=== PATIENT | male | born 1955 | race Caucasian/White ===

== ENCOUNTER 2017-08-26 13:13 | Emergency (ER) | payer MEDICAID ==
[~2017-08-26] VITALS: Ht 185.4 cm; Wt 83.9 kg
[~2017-08-26 13:13] MED LIST: AMOX500T3 PO; HYDR-4683 PO; IBUP800T24 PO
[2017-08-26 14:31] VITALS: BP 104/74
== END 2017-08-26 15:04 | disposition home or self-care (01) ==
LOC: ER 13:22
DX: L03.113 Cellulitis of right upper limb (principal); F12.10 Cannabis abuse, uncomplicated; Z87.891 Personal history of nicotine dependence; Z88.6 Allergy status to analgesic agent; Z88.8 Allergy status to other drugs, medicaments and biological substances

== ENCOUNTER 2019-09-19 06:05 | Emergency (ER) | payer OTHER, MEDICAID ==
[~2019-09-19] VITALS: Ht 185.4 cm; Wt 80.7 kg
[~2019-09-19 06:05] MED LIST changes: -HYDR-4683 PO; +HYDR-4833 PO
[2019-09-19 06:27] VITALS: BP 111/78
[2019-09-19] MEDS ORDERED: BACITRACIN TOP OINT 1 UD PKG TOP ONE ×2 (07:00→07:30)
[2019-09-19] MEDS ORDERED: LIDOCAINE 1% HCL (LOCAL ANESTH.) INJ 20ML MDV IJ ONE (07:00)
== END 2019-09-19 07:46 | disposition home or self-care (01) ==
LOC: ER 06:05
DX: S61.222A Laceration with foreign body of right middle finger without damage to nail, initial encounter (principal); E78.5 Hyperlipidemia, unspecified; Z87.891 Personal history of nicotine dependence; Z88.5 Allergy status to narcotic agent; Z88.8 Allergy status to other drugs, medicaments and biological substances; Z79.2 Long term (current) use of antibiotics; Z79.899 Other long term (current) drug therapy; W26.8XXA Contact with other sharp object(s), not elsewhere classified, initial encounter; Y93.89 Activity, other specified; Y92.89 Other specified places as the place of occurrence of the external cause; Y99.8 Other external cause status
CPT/HCPCS: 12042; 73140; 99284; J2001